=== PATIENT | male | born 1955 | race Caucasian/White ===

== ENCOUNTER 2017-01-01 13:15 | Emergency (ER) | payer BC, OTHER ==
[2017-01-01 13:20] VITALS: BP 138/66
[2017-01-01] MEDS ORDERED: Diphtheria,Pertussis(Acell),Tetanus Vaccine 0.5 ML Syringe IM ONE (13:22)
[2017-01-01] MEDS ORDERED: Lidocaine 1% 20 ML MDV INJECT ONE (13:26)
[2017-01-01] MEDS ORDERED: Bacitracin/Neomycin/Polymyxin B Oint 0.9 GM U/D Packet TOP ONE (13:27)
--- NOTE | 2017-01-01 14:09 | EDM.PDOC ---
ED HPI GENERAL MEDICAL PROBLEM - General Chief Complaint: Laceration Stated Complaint: laceration Time Seen by Provider: 01/01/17 13:55 Source of Information: Reports: Patient History Limitations: Reports: No Limitations - History of Present Illness INITIAL COMMENTS - FREE TEXT/NARRATIVE: Patient presents today with concerns in regards to laceration on his left forearm. He was working outside when a piece of tin caught in the wind and cut his arm. Did not bleed heavily. Put a bandage on it but it has continued to ooze every since. Denies much pain in the area. Due for tetanus. Has good range of motion. Onset: Today, Sudden Duration: Minutes: Location: Reports: Upper Extremity, Left Quality: Reports: Ache, Dull Severity: Mild Associated Symptoms: Reports: No Other Symptoms Treatments [employer]ATOR: Reports: Dressing(s) Left Arm Pain Score (Numeric/FACES): 1 - Related Data Allergies Allergy/AdvReac Type Severity Reaction Status Date / Time atorvastatin [From Lipitor] Allergy Rash Verified 01/01/17 13:43 Home Meds: Home Meds Calcium Carbonate/Vitamin D3 [Calcium 600 + Vit D 200] 1 each PO DAILY 01/01/17 [History] Cholecalciferol (Vitamin D3) [Vitamin D3] 2,000 units PO BID 01/01/17 [History] Febuxostat [Uloric] 80 mg PO DAILY 01/01/17 [History] Folic Acid [Folic Acid] 1 mg PO DAILY 01/01/17 [History] Magnesium Oxide [Magnesium] 1,000 mg PO BID 01/01/17 [History] Metoprolol Succinate 100 mg PO DAILY 01/01/17 [History] NIFEdipine [Nifedical Xl] 30 mg PO DAILY 01/01/17 [History] Rosuvastatin Calcium [Crestor] 10 mg PO DAILY 01/01/17 [History] Spironolactone [Spironolactone] 25 mg PO DAILY 01/01/17 [History] Temazepam [Restoril] 30 mg PO BEDTIME 01/01/17 [History] Vitamin B Complex 1 each PO DAILY 01/01/17 [History] Past Medical History Cardiovascular History: Reports: High Cholesterol, Hypertension Hematologic History: Reports: Folic Acid - Past Surgical History HEENT Surgical History: Reports: Adenoidectomy, Tonsillectomy GI Surgical History: Reports: Appendectomy, Colonoscopy Musculoskeletal Surgical History: Reports: Shoulder Surgery, Other (See Below) Other Musculoskeletal Surgeries/Procedures:: back fusion Social & Family History - Tobacco Use Smoking Status *Q: Never Smoker - Caffeine Use Caffeine Use: Reports: Coffee - Recreational Drug Use Recreational Drug Use: No ED ROS GENERAL - Review of Systems Review Of Systems: ROS reveals no pertinent complaints other than HPI. ED EXAM, SKIN/RASH Exam: See Below Exam Limited By: No Limitations General Appearance: Alert, WD/WN, No Apparent Distress Neurological: Alert, Oriented Skin: Wound/Incision Location, Skin: Upper Extremity, Left ED SKIN PROCEDURES - Laceration/Wound Repair Left Lateral Arm Lac/Wound length In cm: 3 Appearance: Superficial, Clean Distal NVT: Neuro & Vascular Intact Local Anesthesia - Lidocaine (Xylocaine): 1% Plain Local Anesthetic Volume: 3cc Skin Prep: Other (saf-clecrispin) Exploration/Debridement/Repair: Wound Explored Closed with: Sutures Suture Size: 4-0 # of Sutures: 5 Suture Type: Nylon, Interrupted, Simple Tetanus Status Addressed: Yes Complications: No Course - Vital Signs Last Recorded V/S: Last Vital Signs Temp 98.0 F 01/01/17 13:18 Pulse 52 L 01/01/17 13:18 Resp 16 01/01/17 13:18 BP 138/66 01/01/17 13:18 Pulse Ox 96 01/01/17 13:18 - Orders/Labs/Meds Orders: Active Orders 24 hr Category Date Time Status Vaccines to be Administered [RC] PER UNIT ROUTINE Care 01/01/17 13:22 Active Meds: Medications Discontinued Medications Generic Name Dose Route Start Last Admin Trade Name Kristin PRN Reason Stop Dose Admin Diphtheria/Tetanus/Acell Pertussis 0.5 ml 01/01/17 13:22 01/01/17 13:38 Adacel IM 01/01/17 13:23 0.5 ml .ONCE ONE Administration Lidocaine HCl 20 ml 01/01/17 13:26 01/01/17 13:42 Xylocaine 1% INJECT 01/01/17 13:27 20 ml ONETIME ONE Administration Neomycin/Polymyxin/Bacitracin 1 each 01/01/17 13:27 01/01/17 13:42 Triple Antibiotic Oint TOP 01/01/17 13:28 1 each ONETIME ONE Administration Departure - Departure Time of Disposition: 14:08 Disposition: Home, Self-Care 01 Condition: Good Clinical Impression: Broken skin, Laceration - Discharge Information Forms: ED Department Discharge Additional Instructions: 1. keep wound clean and dry 2. Wound care instructions~ watch for infection and report concerns 3. Tylenol or ibuprofen for discomfort 4. Sutures out in 10 days 5. Follow up if any concerns - My Orders Last 24 Hours: My Active Orders 01/01/17 13:22 Vaccines to be Administered [RC] PER UNIT ROUTINE - Assessment/Plan Last 24 Hours: My Active Orders 01/01/17 13:22 Vaccines to be Administered [RC] PER UNIT ROUTINE
== END 2017-01-01 14:15 | disposition home or self-care (01) ==
LOC: CC.ED 13:15
DX: S51.812A Laceration without foreign body of left forearm, initial encounter (principal); E78.00 Pure hypercholesterolemia, unspecified; I10 Essential (primary) hypertension; Z98.890 Other specified postprocedural states; Z90.89 Acquired absence of other organs; Z79.899 Other long term (current) drug therapy; Z88.8 Allergy status to other drugs, medicaments and biological substances; W26.8XXA Contact with other sharp object(s), not elsewhere classified, initial encounter
CPT/HCPCS: 12002; 90471; 90715; 99282

== ENCOUNTER → 2017-11-15 | Day surgery (SDC) | payer BC ==
[~2017-11-15] MED LIST: Lactated Ringers 1,000 ML IV SCH; Propofol 200 MG/20 ML SDV IV ONE
[2017-11-15 12:30] VITALS: BP 158/67
--- NOTE | 2017-11-18 07:21 | OR ---
DATE OF OPERATION: 11/15/2017 PREOPERATIVE DIAGNOSIS: CONSTIPATION. POSTOPERATIVE DIAGNOSIS: CONSTIPATION. SURGEON: Chris Escamilla MD PROCEDURE: FULL-LENGTH COLONOSCOPY. ANESTHESIA: BARREL ROLLER. COMPLICATIONS: None. SPECIMEN: None. FINDINGS: Normal full-length colonoscopy. RECOMMENDATIONS: Routine colonoscopy in 10 years. INDICATIONS: The patient was seen by Андрей Currie for constipation. He did have a prior colonoscopy 5 years ago with polyp removal. Андрей felt appropriate to repeat the scope. DESCRIPTION OF PROCEDURE: The patient was prepped and draped, placed in the left lateral decubitus position. A lubricated Olympus colonoscope was inserted and easily advanced to the cecum. Direct visualization of the ileocecal valve and appendiceal orifice was accomplished. Bowel prep was adequate. Upon withdrawal, throughout the entire length of the colon, I could find no signs of polyps, mass, ulceration, or bleeding sites. No vascular abnormalities or signs of colitis. No significant diverticula. The rectal vault was benign. Retroflexion of the scope in the rectum showed no anal lesions. Air was suctioned and scope was removed without complication. DIA/KAREN /[id number]
== END ==
LOC: CC.SDS 11:03
PROVIDERS: ATTEND Family Medicine
DX: K59.00 Constipation, unspecified (principal); Z86.010 Personal history of colon polyps; I10 Essential (primary) hypertension; Z79.899 Other long term (current) drug therapy; Z88.8 Allergy status to other drugs, medicaments and biological substances
CPT/HCPCS: J7120

== ENCOUNTER 2019-12-12 08:02 | Emergency (ER) | payer MEDICARE, BC ==
[2019-12-12 08:10] VITALS: BP 135/61; PULSE 55
--- NOTE | 2019-12-12 08:47 | EDM.PDOC ---
ED HPI GENERAL MEDICAL PROBLEM - General Chief Complaint: General Stated Complaint: spots on tongue Time Seen by Provider: 12/12/19 08:30 Source of Information: Reports: Patient History Limitations: Reports: No Limitations - History of Present Illness INITIAL COMMENTS - FREE TEXT/NARRATIVE: This patient is a 64 year old male that presents to the ER. Patient reports that he went on Saturday and had a prostate biopsy. Patient reports that they placed him on Cipro. He reports that he began having tongue burning and pain at the tip, with white area. Patient reports he called his doctor, placed on Nystatin PO. He reports today the burning pain is no better. Onset Date: 12/10/19 Duration: Day(s): (2) Location: Reports: Other (tongue) Severity: Moderate Improves with: Reports: None Worsens with: Reports: None Associated Symptoms: Denies: Confusion, Chest Pain, Cough, cough w sputum, Diaphoresis, Fever/Chills, Headaches, Loss of Appetite, Malaise, Nausea/Vomiting , Rash, Seizure, Shortness of Breath, Syncope, Weakness tongue Pain Score (Numeric/FACES): 9 - Related Data Allergies Allergy/AdvReac Type Severity Reaction Status Date / Time atorvastatin [From Lipitor] Allergy Rash Verified 12/12/19 08:03 Home Meds: Home Meds Calcium Carbonate/Vitamin D3 [Calcium 600 + Vit D 200] 1 each PO DAILY 01/01/17 [History] Cholecalciferol (Vitamin D3) [Vitamin D3] 1,000 units PO BID 01/01/17 [History] Folic Acid 1 mg PO DAILY 01/01/17 [History] Magnesium Oxide [Magnesium] 1,000 mg PO BID 01/01/17 [History] Metoprolol Succinate 100 mg PO DAILY 01/01/17 [History] Vitamin B Complex 1 each PO DAILY 01/01/17 [History] Allopurinol [Zyloprim] 300 mg PO DAILY 12/12/19 [History] Aspirin [Halfprin] 81 mg PO DAILY 12/12/19 [History] Diphenhyd/Lidocaine/Nystatin [First-Bxn Mouthwash] 30 ml MM Q6HR #240 susp.recon 12/12/19 [Rx] Zolpidem Tartrate 10 mg PO DAILY 12/12/19 [History] lisinopriL [Lisinopril] 10 mg PO DAILY 12/12/19 [History] Past Medical History Cardiovascular History: Reports: High Cholesterol, Hypertension Hematologic History: Reports: Folic Acid - Past Surgical History HEENT Surgical History: Reports: Adenoidectomy, Tonsillectomy GI Surgical History: Reports: Appendectomy, Colonoscopy Other Male Surgeries/Procedures: prostate biopsy December 2019 Musculoskeletal Surgical History: Reports: Shoulder Surgery, Other (See Below) Other Musculoskeletal Surgeries/Procedures:: back fusion. muscle biopsy November 2019 Social & Family History - Tobacco Use Smoking Status *Q: Never Smoker Second Hand Smoke Exposure: No - Caffeine Use Caffeine Use: Reports: Coffee ED ROS GENERAL - Review of Systems Review Of Systems: See Below Constitutional: Reports: No Symptoms. Denies: Fever HEENT: Reports: Other (tongue burning, white spot) Respiratory: Reports: No Symptoms Cardiovascular: Reports: No Symptoms Endocrine: Reports: No Symptoms GI/Abdominal: Reports: No Symptoms. Denies: Nausea, Vomiting : Reports: No Symptoms Musculoskeletal: Reports: No Symptoms Skin: Reports: No Symptoms Neurological: Reports: No Symptoms Psychiatric: Reports: No Symptoms Hematologic/Lymphatic: Reports: No Symptoms Immunologic: Reports: No Symptoms ED EXAM, GENERAL - Physical Exam Exam: See Below Exam Limited By: No Limitations General Appearance: Alert, WD/WN, No Apparent Distress Eye Exam: Bilateral Eye: Normal Inspection, PERRL Ears: Normal External Exam, Normal Canal, Hearing Grossly Normal, Normal TMs Ear Exam: Bilateral Ear: Auricle Normal, Canal Normal, TM normal Nose: Normal Inspection, Normal Mucosa, No Blood Throat/Mouth: Normal Lips, Normal Teeth, Normal Gums, Normal Oropharynx, Normal Voice, No Airway Compromise, Other (tip of right tongue, white area, top of tongue white, thrush like appearance. ) Head: Atraumatic, Normocephalic Neck: Normal Inspection, Supple, Non-Tender, Full Range of Motion Respiratory/Chest: No Respiratory Distress, Lungs Clear, Normal Breath Sounds, No Accessory Muscle Use Cardiovascular: Normal Peripheral Pulses, No Edema, No Gallop, No JVD, No Murmur , No Rub, Bradycardia (56 on exam) Peripheral Pulses: 2+: Radial (L), Radial (R) Back Exam: Normal Inspection Extremities: Normal Inspection Neurological: Alert, Oriented Psychiatric: Normal Affect, Normal Mood Skin Exam: Warm, Dry, Intact, Normal Color, No Rash Lymphatic: No Adenopathy Course - Vital Signs Last Recorded V/S: Last Vital Signs Temp 98 F 12/12/19 08:07 Pulse 55 L 12/12/19 08:07 Resp 20 12/12/19 08:07 BP 135/61 12/12/19 08:07 Pulse Ox 99 12/12/19 08:07 Departure - Departure Time of Disposition: 08:39 Disposition: Home, Self-Care 01 Condition: Fair Clinical Impression: Oral candidiasis - Discharge Information *PRESCRIPTION DRUG MONITORING PROGRAM REVIEWED*: Not Applicable *COPY OF PRESCRIPTION DRUG MONITORING REPORT IN PATIENT DEREJE: Not Applicable Prescriptions: Diphenhyd/Lidocaine/Nystatin [First-Bxn Mouthwash] 30 ml MM Q6HR #240 susp.recon Instructions: Oral Thrush, Adult, [id number] Referrals: PCP,None [Primary Care Provider] - Forms: ED Department Discharge Additional Instructions: Followup with primary care provider if continues after 7-10 days for recheck and possible work up/labs as we have discussed Return to the ER for worsening of condition or any emergent concerns Magic Mouth Wash may use every 6 hours" follow bottle instructions: #240ml 1 refill [facility] to [facility] Continue all your medications prescribed Sepsis Event Note - Evaluation Sepsis Screening Result: No Definite Risk - Focused Exam Vital Signs: Vital Signs Temp Pulse Resp BP Pulse Ox 12/12/19 08:07 98 F 55 L 20 135/61 99 Date Exam was Performed: 12/12/19 Time Exam was Performed: 08:52 - Assessment/Plan Plan: PLEASE SEE RN NOTE FOR PFS
== END 2019-12-12 08:53 | disposition home or self-care (01) ==
LOC: CC.ED 08:02
DX: B37.0 Candidal stomatitis (principal); I10 Essential (primary) hypertension; Z88.8 Allergy status to other drugs, medicaments and biological substances; Z79.82 Long term (current) use of aspirin; Z79.899 Other long term (current) drug therapy
CPT/HCPCS: 99283

== ENCOUNTER 2022-03-20 11:20 | Emergency (ER) | payer MEDICARE, BC ==
[2022-03-20 12:21] VITALS: BP 149/80; PULSE 62
== END 2022-03-20 12:45 | disposition home or self-care (01) ==
LOC: CC.ED 11:20
DX: R06.02 Shortness of breath (principal); E78.00 Pure hypercholesterolemia, unspecified; I10 Essential (primary) hypertension; Z88.8 Allergy status to other drugs, medicaments and biological substances; Z79.82 Long term (current) use of aspirin; Z79.899 Other long term (current) drug therapy; Z20.822 Contact with and (suspected) exposure to COVID-19
CPT/HCPCS: 36415; 71046; 80053; 84484; 85025; 93005; 93010; 99284; 99285; U0002

== ENCOUNTER → 2022-11-20 | Day surgery (SDC) | payer MEDICARE, BC ==
[~2022-11-20] MED LIST changes: -Lactated Ringers 1,000 ML IV SCH; +Lidocaine 1% 5 ML VIAL INJECT ONE; -Propofol 200 MG/20 ML SDV IV ONE
[2022-11-20 11:09] VITALS: BP 146/69; PULSE 60
== END ==
LOC: CC.SDS 10:35
PROVIDERS: ATTEND Family Medicine
DX: I83.813 Varicose veins of bilateral lower extremities with pain (principal); M10.9 Gout, unspecified; E78.00 Pure hypercholesterolemia, unspecified; I10 Essential (primary) hypertension; G47.33 Obstructive sleep apnea (adult) (pediatric); C61 Malignant neoplasm of prostate; G72.41 Inclusion body myositis [IBM]; E55.9 Vitamin D deficiency, unspecified; G47.00 Insomnia, unspecified; Z88.8 Allergy status to other drugs, medicaments and biological substances; Z79.82 Long term (current) use of aspirin; Z79.899 Other long term (current) drug therapy; Z88.1 Allergy status to other antibiotic agents
CPT/HCPCS: A4216; J3490